=== PATIENT | female | born 1995 | race African-American/Black ===

== ENCOUNTER 2019-06-08 06:23 | Emergency (ER) | payer SELFPAY ==
[~2019-06-08] VITALS: Ht 157.5 cm; Wt 40.4 kg
[2019-06-08 06:30] VITALS: BP 119/70
--- NOTE | 2019-06-08 06:45 | NUR ---
dr. hooks at the bed side
--- NOTE | 2019-06-08 06:55 | NUR ---
Patient discharged to home in stable condition. rx and Written and verbal after care instructions given. Patient verbalizes understanding of instruction.
== END 2019-06-08 07:01 | disposition home or self-care (01) ==
LOC: ER 06:29
DX: N93.8 Other specified abnormal uterine and vaginal bleeding (principal)